=== PATIENT | female | born 1985 ===

== ENCOUNTER 2021-05-11 17:14 | Emergency (ER) | payer OTHER, MEDICAID ==
[2021-05-11 17:25] VITALS: BP 140/90
[2021-05-11] MEDS ORDERED: CYCLOBENZAPRINE 10 MG TAB PO ONE (18:20)
[2021-05-11] MEDS ORDERED: IBUPROFEN 600 MG TAB PO ONE (18:20)
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
== END 2021-05-11 20:08 | disposition home or self-care (01) ==
LOC: EDBD → ED 17:14
DX: S50.812A Abrasion of left forearm, initial encounter (principal); R51.9 Headache, unspecified; V87.7XXA Person injured in collision between other specified motor vehicles (traffic), initial encounter; Y93.89 Activity, other specified; Y92.488 Other paved roadways as the place of occurrence of the external cause; Y99.8 Other external cause status
CPT/HCPCS: 99283